=== PATIENT | female | born 1960 | race Caucasian/White ===

== ENCOUNTER 2017-02-21 11:12 | Emergency (ER) | payer OTHER ==
[2017-02-21] MEDS: HYDROcodone/APAP 5/325MG 1 TAB TABLET PO (12:04)
== END 2017-02-21 13:47 | disposition home or self-care (01) ==
LOC: ER 11:12
DX: S89.92XA Unspecified injury of left lower leg, initial encounter (principal); J45.909 Unspecified asthma, uncomplicated; Z98.1 Arthrodesis status; W01.0XXA Fall on same level from slipping, tripping and stumbling without subsequent striking against object, initial encounter; Y93.89 Activity, other specified; Y99.8 Other external cause status; Y92.89 Other specified places as the place of occurrence of the external cause
CPT/HCPCS: 29505; 73562; 99284-25

== ENCOUNTER → 2017-10-14 | Outpatient (CLI) | payer OTHER ==
[2017-02-21 11:38] VITALS: BP 134/69
[~2017-10-14] MED LIST: CETI10TA22 PO; HYDR-971 PO; HYDROCODONE PO; IBUP-1060 PO; MONT10TA6 PO
== END | disposition home or self-care (01) ==
LOC: SPEC 12:26
PROVIDERS: ATTEND Family Medicine
DX: Z12.4 Encounter for screening for malignant neoplasm of cervix (principal); K21.9 Gastro-esophageal reflux disease without esophagitis
CPT/HCPCS: 87623; 88175

== ENCOUNTER → 2019-03-17 | Outpatient (CLI) | payer OTHER ==
[2017-02-21 11:38] VITALS: BP 134/69
[~2019-03-17] MED LIST changes: -CETI10TA22 PO; +CETI10TA24 PO; +HYDR-3164 PO; -HYDR-971 PO; +MONT10TA49 PO; -MONT10TA6 PO
[2019-03-17 09:21] LABS: HEMATOCRIT 41.3 % (36.0-47.0); RED BLOOD COUNT 4.45 x10^6/uL (3.50-5.40); RED CELL DISTRIBUTION WIDTH 13.1 % (11.5-14.5); WHITE BLOOD COUNT 5.3 x10^3/uL (4.0-11.0)
[2019-03-17 09:47] LABS: ALBUMIN 3.4 g/dL (3.4-5.0); ALBUMIN/GLOBULIN RATIO 0.9 (1.0-1.7); CALCIUM 8.9 mg/dL (8.5-10.1); CREATININE 0.6 mg/dL (0.6-1.0); GFR 103.4; POTASSIUM 4.6 mmol/L (3.5-5.1); TOTAL BILIRUBIN 0.3 mg/dL (0.2-1.0); TOTAL PROTEIN 7.2 g/dL (6.4-8.2)
[2019-03-17 09:49] LABS: CHOLESTEROL/HDL RATIO 3.1
[2019-03-17 10:00] LABS: THYROID STIM HORMONE (TSH) 1.566 uIU/mL (0.358-3.74)
[2019-03-19 13:06] LABS: FREE T4 0.95 ng/dL (0.76-1.46)
== END | disposition home or self-care (01) ==
LOC: LAB 08:53
PROVIDERS: ATTEND Nurse Practitioner Gerontology
DX: Z00.00 Encounter for general adult medical examination without abnormal findings (principal)
CPT/HCPCS: 36415; 80053; 80061; 84439; 84443; 85027

== ENCOUNTER 2020-04-05 08:35 | Emergency (ER) | payer OTHER ==
[~2020-04-05] VITALS: Ht 162.6 cm; Wt 90.0 kg
[~2020-04-05 08:35] MED LIST changes: -CETI10TA24 PO; +CETI10TA74 PO
[2020-04-05 08:49] VITALS: BP 172/122
[2020-04-05 08:59] LABS: BILIRUBIN,URINE SMALL (NEG); CLARITY,URINE CLEAR; COLOR,URINE YELLOW; NITRITE,URINE NEGATIVE (NEG); PH,URINE 6.5 (<5.0-8.0); PROTEIN,URINE NEGATIVE (NEG-TRACE)
--- NOTE | 2020-04-05 09:11 | PHYS DOC ---
Past Medical History Past Medical History: Asthma, Other Additional Past Medical Histor: seasonal allergies Past Surgical History: , Other Additional Past Surgical Histo: ORIF left wrist Smoking Status: Never Smoker Alcohol Use: Occasionally Drug Use: None General Adult EDM: Chief Complaint: LOWER BACK PAIN OR INJURY HPI: HPI: This is a pleasant 59-year-old female presents emergency department with low back pain after playing tennis. This all started on Wednesday and the pain is been worsening. She has seen urgent care which gave her Toradol and Flexeril without much improvement. She denies any weakness in her legs. She denies naus ea vomiting fevers or chills. She denies dysuria polyuria. Heart Score: Risk Factors: Risk Factors: DM, Current or recent (<one month) smoker, HTN, HLP, family history of CAD, obesity. Risk Scores: Score 0 - 3: 2.5% MACE over next 6 weeks - Discharge Home Score 4 - 6: 20.3% MACE over next 6 weeks - Admit for Clinical Observation Score 7 - 10: 72.7% MACE over next 6 weeks - Early Invasive Strategies Allergies: Allergies: Allergies Coded Allergies Type Severity Reaction Last Updated Verified No Known Drug Allergies 12/26/14 No Physical Exam: PE: Constitutional: Well developed, well nourished, no acute distress, non-toxic appearance. [] HENT: Normocephalic, atraumatic, bilateral external ears normal, oropharynx moist, no oral exudates, nose normal. [] Eyes: PERRLA, EOMI, conjunctiva normal, no discharge. [] Neck: Normal range of motion, no tenderness, supple, no stridor. [] Cardiovascular:Heart rate regular rhythm, no murmur [] Lungs & Thorax: Bilateral breath sounds clear to auscultation [] Abdomen: Bowel sounds normal, soft, no tenderness, no masses, no pulsatile masses. [] Skin: Warm, dry, no erythema, no rash. [] Back: Mild tenderness in the paraspinal musculature bilaterally in the lumbar region. Nontender midline. No step-offs. No fluctuant masses. Normal temperature to touch., no CVA tenderness. [] Extremities: No tenderness, no cyanosis, no clubbing, ROM intact, no edema. [] Neurologic: Alert and oriented X 3, normal motor function, normal sensory function, no focal deficits noted. [] 5 out of 5 strength in the legs with normal deep tendon reflexes of the knees. Psychologic: Affect normal, judgement normal, mood normal. [] EKG: EKG: [] Radiology/Procedures: Radiology/Procedures: [] Course & Med Decision Making: Course & Med Decision Making Pertinent Labs and Imaging studies reviewed. (See chart for details) [] Dragon Disclaimer: Dragon Disclaimer: This electronic medical record was generated, in whole or in part, using a voice recognition dictation system. Departure Departure Impression: Primary Impression: Back pain Disposition: 01 DC HOME SELF CARE/HOMELESS Condition: STABLE Referrals: SHANNAN MONGE APRN (PCP) Patient Instructions: Back Pain, Adult Additional Instructions: EMERGENCY DEPARTMENT GENERAL DISCHARGE INSTRUCTIONS Follow-up with your primary physician in 1 to 2 days. Return to the emergency department if you have any new or concerning findings. Thank you for coming to [facility] (ED) today and trusting us with you care. We trust that you had a positive experience in our Emergency Department. If you wish to speak to the department management, you may call the Director at [phone]. YOUR FOLLOW UP INSTRUCTIONS ARE FOLLOWS: 1. Do you have a private Doctor? If you do not have a private doctor, please ask for a resource list of physicians or clinics that may be able to assist you with follow up care. 2. If a lab test or culture has been done and does not come back immediately, your results will be reviewed and you will be notified if you need a change in treatment. ADDITIONAL INSTRUCTIONS AND INFORMATION: 1. Your care today has been supervised by a physician who is specially trained in emergency care. Many problems require more than one evaluation for a complete diagnosis and treatment. We recommend that you schedule your follow up appointment as recommended to ensure complete treatment of you illness or injury. If you are unable to obtain follow up care and continue to have a problem, or if your condition worsens, we recommend that you return to the ED. 2. We are not able to safely determine your condition over the phone nor are we able to give sound medical advice over the phone. For these safety reasons, if you call for medical advice we will ask you to come to the ED for further evaluation. 3. If you have any questions regarding these discharge instructions please call the ED at [phone]. SAFETY INFORMATION: In the interest of safety, wellness, and injury prevention; we encourage you to wear your sealbelt, if you smoke; quite smoking, and we encourage family to use a protective helmet for bicycling and other sporting events that present an increased risk for head injury. IF YOUR SYMPTOMS WORSEN OR NEW SYMPTOMS DEVELOP, OR YOU HAVE CONCERNS ABOUT YOUR CONDITION; OR IF YOUR CONDITION WORSENS WHILE YOU ARE WAITING FOR YOUR FOLLOW UP APPOINTMENT; EITHER CONTACT YOUR PRIMARY CARE DOCTOR, THE PHYSICIAN WHOSE NAME AND NUMBER YOU WERE GIVEN, OR RETURN TO THE ED IMMEDIATELY. This condition should be evaluated by your primary care physician and any necessary consulting services for continued management within a few days (1-2) after discharge. Return to the emergency department if you have any new or concerning symptoms including but not limited to fever, chills, nausea, vomiting, intractable pain, any new rashes, chest pain, shortness of breath, uncontrolled bleeding, difficulty breathing, and/or vision loss. Scripts Hydrocodone Bit/Acetaminophen (HYDROCODONE-APAP 5-325 ) 1 Tab Tablet 1 TAB PO PRN Q8HRS PRN for sev, #8 TAB 0 Refills Prov: MISHA SEXTON MD 04/05/20 Cyclobenzaprine Hcl (CYCLOBENZAPRINE HCL) 5 Mg Tablet 1 TAB PO TID PRN PRN for PAIN, #10 TAB Prov: MISHA SEXTON MD 04/05/20 MISHA SEXTON MD Apr 05, 2020 09:11
[2020-04-05 09:12] LABS: BACTERIA,URINE 0 /HPF (0-FEW)
--- NOTE | 2020-04-05 09:16 | RAD ---
PROCEDURE: XR LUMBAR SPINE 2-3V STUDY DATE: 04/05/2020 CLINICAL INDICATION / HISTORY: Reason: low back pain, injured back playin tennis Sat / Spl. Instructi ons: / History: . TECHNIQUE: AP, lateral and coned-down lateral views of the lumbar spine were obtained COMPARISON: None available FINDINGS: Five lumbar segments are identified. Lumbar vertebral bodies are normal in height and align ment. Disc height is mildly narrowed at L5-S1. Mild facet hypertrophy changes are present, best appre ciated at L3-L4 through L5-S1. Pedicles are intact. IMPRESSION: Mild lower lumbar spinal degenerative changes. No fracture or malalignment shown. Electronically signed by: Princess Trevino MD (04/05/2020 9:14 AM) [id number]
[2020-04-05] MEDS ORDERED: HYDR-2761 PO (11:12)
[2020-04-05] MEDS ORDERED: CYCL5TAB PO (11:12)
== END 2020-04-05 11:21 | disposition home or self-care (01) ==
LOC: ER 08:35
DX: M54.5 Low back pain (principal); J45.909 Unspecified asthma, uncomplicated
CPT/HCPCS: 72100; 81001; 99284

== ENCOUNTER 2021-02-23 23:32 | Emergency (ER) | payer OTHER ==
[~2021-02-23] VITALS: Ht 165.1 cm; Wt 88.6 kg
[~2021-02-23 23:32] MED LIST changes: +CYCL5TAB PO; +HYDR-2761 PO
[2021-02-23 23:45] VITALS: BP 141/81
[2021-02-23] MEDS ORDERED: ORPHENADRINE CITRATE 60 MG/2 ML VIAL. IM ONE (23:45)
[2021-02-23] MEDS ORDERED: KETOROLAC 60 MG/2 ML VIAL. IM ONE (23:45)
--- NOTE | 2021-02-23 23:59 | ED.ADGEN ---
Past Medical History Past Medical History: Asthma, Other Additional Past Medical Histor: seasonal allergies Past Surgical History: , Other Additional Past Surgical Histo: ORIF left wrist Smoking Status: Never Smoker Alcohol Use: Occasionally Drug Use: None General Adult EDM: Chief Complaint: MECHANICAL FALL HPI: HPI: Patient is a 60 year old 60-year-old female coming in for left anterior thigh pain. Patient states she fell down her steps and is unsure how she landed that she landed on her knees. Is back difficulty ambulating secondary to pain. No other injuries Review of Systems: Review of Systems: All other systems within normal limits except for as noted in the HPI Current Medications: Current Medications Medications (Trade) Dose Ordered Sig/Hallie Start Time Stop Time Status Last Admin Dose Admin Ketorolac Tromethamine (Toradol Im) 60 mg 1X ONCE 02/23/21 23:45 02/23/21 23:51 DC 02/24/21 00:31 60 MG Orphenadrine Citrate (Norflex) 60 mg 1X ONCE 02/23/21 23:45 02/23/21 23:51 DC 02/24/21 00:32 60 MG Allergies: Allergies: Allergies Coded Allergies Type Severity Reaction Last Updated Verified No Known Drug Allergies 12/26/14 No Physical Exam: PE: Constitutional: Well developed, well nourished, no acute distress, non-toxic appearance. [] HENT: Normocephalic, atraumatic, bilateral external ears normal, nose normal. [] Eyes: PERRLA, conjunctiva normal, no discharge. [] Neck: No rigidity, supple, no stridor. [] Cardiovascular: Regular rate and rhythm, brisk cap refill [] Lungs & Thorax: Non labored symmetric respirations, no tachypnea or respiratory distress [] Abdomen: Soft, nondistended. Skin: Warm, dry, no erythema, no rash. [] Back: Unremarkable Extremities: No deformities, range of motion grossly intact, no lower extremity edema. No tenderness over hip or lower part of left leg. Tenderness and firmness to anterior left thigh, on postop [] Neurologic: Alert and oriented X 3, no focal deficits noted. [] Psychologic: Affect normal, judgement normal, mood normal. [] Current Patient Data: Vital Signs: Vital Signs Date Time Temp Pulse Resp B/P (MAP) Pulse Ox O2 Delivery O2 Flow Rate FiO2 1/9/22 23:45 98.2 96 14 141/81 (101) 95 Room Air 98.2 EKG: EKG: [] Heart Score: C/O Chest Pain: No Risk Factors: Risk Factors: DM, Current or recent (<one month) smoker, HTN, HLP, family history of CAD, obesity. Risk Scores: Score 0 - 3: 2.5% MACE over next 6 weeks - Discharge Home Score 4 - 6: 20.3% MACE over next 6 weeks - Admit for Clinical Observation Score 7 - 10: 72.7% MACE over next 6 weeks - Early Invasive Strategies Radiology/Procedures: Radiology/Procedures: [] Course & Med Decision Making: Course & Med Decision Making EP interpretation of imaging shows no obvious fracture deformities, no signs of avulsion fracture. Patient's pain is localized to 1 area of her anterior thigh, there is no tenderness on the muscle distal or proximal to pain site, pain out of portion and not reproducible with passive stretch, patella tendon intact against gravity. No tenderness over bony tendon insertion sites. Unlikely to be an avulsion fracture or compartment syndrome, but patient given return precautions. Patient placed in knee immobilizer Dragon Disclaimer: [employer] Disclaimer: This electronic medical record was generated, in whole or in part, using a voice recognition dictation system. Departure Departure Impression: Primary Impression: Muscle strain of left thigh Disposition: 01 HOME / SELF CARE / HOMELESS Condition: STABLE Referrals: SHANNAN MONGE APRN (PCP) PHOENIX RAMSAY Jr. DO Patient Instructions: Muscle Cramps, [id number] Scripts Cyclobenzaprine Hcl (CYCLOBENZAPRINE HCL) 10 Mg Tablet 1 TAB PO TID PRN for MUSCLE PAIN for 5 Days, #15 TAB Prov: STEPHANIE LU MD 02/24/21 STEPHANIE LU MD Feb 23, 2021 23:59
[2021-02-24] MEDS ORDERED: CYCL10TA19 PO (01:20)
--- NOTE | 2021-02-24 01:35 | RAD ---
XR FEMUR_LEFT History: Reason: possible quad avulsion / Spl. Instructions: / History: Pain Technique: 2 views left femur Comparison: None. Findings: No dislocation. No acute fracture. Moderate left knee DJD. Mild pubic symphysis DJD. Mild left hip DJ D. Potential inflammatory changes superior to the patella. Small calcification superior to the patella m easures 0.2 cm and is 3.1 cm distance above the patella. Impression: 1. Suprapatellar infiltration with small calcification, can be seen with avulsion fracture fragment in the appropriate clinical setting. Recommend further clinical evaluation. Electronically signed by: Eduardo Mirza DO (02/24/2021 1:32 AM) [facility]
== END 2021-02-24 02:25 | disposition home or self-care (01) ==
LOC: ER 23:32
DX: S76.912A Strain of unspecified muscles, fascia and tendons at thigh level, left thigh, initial encounter (principal); J45.909 Unspecified asthma, uncomplicated; W10.8XXA Fall (on) (from) other stairs and steps, initial encounter; Y93.89 Activity, other specified; Y92.89 Other specified places as the place of occurrence of the external cause; Y99.8 Other external cause status
CPT/HCPCS: 29505; 73552; 96372; 99284; J1885; J2360

== ENCOUNTER → 2021-03-04 | Outpatient (CLI) | payer OTHER ==
[2021-02-23 23:45] VITALS: BP 141/81
[~2021-03-04] MED LIST changes: +CYCL10TA19 PO
--- NOTE | 2021-03-04 09:03 | KCIC ---
STUDY: MRI of the left knee without contrast INDICATION: Left knee pain. Injury reported on 02/23/2021. COMPARISON: Left femur radiographs 02/23/2021 TECHNIQUE: Multiplanar MR imaging of the left knee performed without the use of intravenous or intra- articular contrast. FINDINGS: Menisci: Mild heterogeneity of the articular surfaces of the medial meniscal body, image 16 series 8, but no discrete meniscal tear defect is seen medial or lateral. Cruciate ligaments: Intact. Collateral ligaments: Intact medial and lateral collateral ligaments. Edema/tracking fluid along the collateral ligaments is reactive. Tendons: High-grade partial tear of the quadriceps primarily with involvement of the vastus intermedi us which is fully torn from its patellar insertion. Variable extent of tendon retraction mainly betwe en 1 and 2 cm. Suspected partial tear of the vastus lateralis. Partially visualized vastus lateralis more so than medius muscular edema. Muscular edema along the deep aspect of the medial gastrocnemius in the setting of a tracking intermuscular fluid collection that communicates with a Child's cyst. Cartilage: Tricompartmental chondrosis with greatest involvement of the patellofemoral compartment, p rimarily the patella, where there is high-grade and full-thickness loss. Chondrosis elsewhere is most ly partial-thickness but with some areas of high-grade/near full-thickness loss such as at the proxim al nonweightbearing lateral femoral condyle (image 12 series 8 and at the inner weightbearing medial femoral condyle on image 16 series 8. Bones: Tricompartmental osteophytes. Mild scattered degenerative subchondral signal. Bony irregularit y and minimal edema at the superior pole of the patella related to the quadriceps tear and likely tra ce bony avulsion. Miscellaneous: Small joint effusion. Edema/hemorrhage at the suprapatellar fat pad. Multifocal soft t issue edema and tracking ill-defined fluid signal. Small mildly complex Child's cyst with probable le akage of cyst contents downward into the calf. As above, a portion of the cyst infiltrates the medial gastrocnemius muscle with surrounding edema. A few small loose bodies such as dorsal/medial to the P CL. IMPRESSION: 1. High-grade partial tear of the quadriceps to include a full-thickness tear of the vastus intermed ius off its patellar insertion. Variable retraction mainly between 1 and 2 cm and with suspected mini mal associated bony avulsion. The rectus femoris and vastus medialis are still seen to attach to the patella. Possible partial vastus lateralis tear but difficult to confirm. The patella remains normall y located. 2. Intact menisci, cruciate ligaments and collateral ligaments. 3. Small knee joint effusion and soft tissue sequela of trauma around the knee. Small Child's cyst w hich appears to be leaking cyst contents and infiltrates into the medial gastrocnemius with surroundi ng muscular edema. 4. Tricompartmental chondrosis with some areas of high-grade and full-thickness loss most extensivel y at the patella. A few small knee joint loose bodies. Electronically signed by: HUYEN NASH MD (03/04/2021 9:00 AM) [facility]
== END ==
LOC: KCIC MRI 07:55
PROVIDERS: ATTEND Nurse Practitioner Family
DX: S76.112A Strain of left quadriceps muscle, fascia and tendon, initial encounter (principal); M71.22 Synovial cyst of popliteal space [Baker], left knee; M25.762 Osteophyte, left knee; M25.462 Effusion, left knee; M79.4 Hypertrophy of (infrapatellar) fat pad; M23.42 Loose body in knee, left knee; X58.XXXA Exposure to other specified factors, initial encounter; Y93.89 Activity, other specified; Y92.89 Other specified places as the place of occurrence of the external cause; Y99.8 Other external cause status
CPT/HCPCS: 73721

== ENCOUNTER 2021-03-11 06:03 | Day surgery (SDC) | payer OTHER ==
[~2021-03-11] VITALS: Ht 167.6 cm; Wt 88.6 kg
[~2021-03-11 06:03] MED LIST changes: +HYDROmorphone 2 MG/ML INJ. IVP PRN; +IV RINGERS,LACTATED 1000ML 1,000 ML IV SCH; +MORPHINE SULFATE 2 MG/ML INJ. IVP PRN; +PROCHLORPERAZINE 10 MG/2 ML VIAL. IVP PRN; +fentaNYL PF VIAL 100 MCG/2 ML VIAL IVP PRN
[2021-03-11 06:21] VITALS: BP 137/75
[2021-03-11] MEDS ORDERED: ALBU2.5V8 IH (06:32)
[2021-03-11] MEDS ORDERED: MOME13HF2 IH (06:32)
[2021-03-11] MEDS ORDERED: BUPIVACAINE MPF 0.5% 30 ML VIAL. ONE (06:57)
[2021-03-11] MEDS ORDERED: LIDOCAINE 1% PF 30 ML VIAL. ONE (06:57)
[2021-03-11] MEDS ORDERED: PROPOFOL 10 MG/ML (20ML) VIAL. IV ONE (06:58)
[2021-03-11] MEDS ORDERED: fentaNYL PF VIAL 100 MCG/2 ML VIAL ONE ×3 (06:58→09:03)
[2021-03-11] MEDS ORDERED: ceFAZolin 2GM PREMIX 2 GM/50 ML BAG IV ONE (07:00)
[2021-03-11] MEDS ORDERED: ONDANSETRON PF 4 MG/2 ML VIAL. ONE (07:01)
[2021-03-11] MEDS ORDERED: DEXAMETHASONE SOD PHOS 4 MG/ML VIAL ONE (07:01)
[2021-03-11] MEDS ORDERED: SUCCINYLCHOLINE 200 MG/10 ML VIAL. ONE (07:03)
[2021-03-11] MEDS ORDERED: OXYC-325 PO (07:28)
--- NOTE | 2021-03-11 07:29 | DISCH ---
DISCHARGE INSTRUCTIONS Condition on Discharge Condition on Discharge: Stable Activity After Discharge Activity Instructions for Disc: No restrictions, Other ROM activity Other activity instructions: Okay to weight-bear with brace locked in extension Bathing Instructions: Shower-keep dressing dry Weight Bearing Status after Di: Non weight bearing Diet after Discharge Diet after Discharge: Regular Wound Incision Care Wound/Incision Care: Ice to area for comfort, Keep wound/cast CDI, Change dressing, Do not change dressing Other wound/incision instructi: Change dressing in 2 to 3 days, keep incision covered Contacting the DRJonny after DC Call your doctor for: Concerns you may have Follow-Up Follow up with: Gabriel in 2 wks Treatment/Equipment after DC Adaptive Equipment Issued: None MARQUISE AUSTIN II, MD Mar 11, 2021 07:29
--- NOTE | 2021-03-11 07:31 | PDOC4 ---
Operative Note Operative Note Date of procedure: 03/11/2021 Surgeon: Roman Austin Production Line: Juan Zimmer Preoperative diagnosis: High-grade left partial quad rupture Postoperative diagnosis: Same Procedure performed: Open left quadriceps repair Anesthesia: General Tourniquet time: 38min Blood loss: 10 mL Findings: Patient had a interstitial, deep rupture of the lateral 50 to 66% of her quad tendon. She had a hemarthrosis present. Complications: None Reason for procedure: Patient is a pleasant 60-year-old who was referred to see me in my outpatient clinic after a knee injury. Clinical and radiographic examination including MRI were reviewed and consistent with the above preoperative diagnosis. Because of the high-grade nature, I recommended surgical intervention and discussed the risks benefits and alternatives and she wished to proceed. Description of procedure: Patient was greeted in the preoperative area by myself or the correct extremity was verified and marked. She was taken to the operative suite and antibiotics were started as she was brought back. Once in the operating room, she was transferred gently supine to the operating table and secured to bed with all pressure points padded. She underwent successful induction of a general anesthetic. We then proceeded to prep and drape left lower extremity in her usual sterile fashion after applying a nonsterile tourniquet. After this, we conducted a standard preoperative timeout. I then palpated marked surface anatomy and toma a line for my planned incision anterior midline incision. The extremity was exsanguinated with an Esmarch and tourniquet insufflated to 250 mmHg. After this, I incised skin with a scalpel and dissected subcutaneous tissue with electrocautery. I opened the peritenon. I continued my dissection medially and laterally to expose the patella and quad tendon. After this, I palpated for the defect and incised with a scalpel blade, there was about a millimeter thickness of quad tendon that was still intact superficially, but the deep portion allowed visualization of the hematoma and extravasation of a hemarthrosis, I used a rongeur to prepare my bony bed at the superior aspect of the patella and debride the unhealthy appearing tendon as well. After this, I placed 2 drill tunnels, using a mosquito to spread inferiorly at the patella followed by a soft tissue protector and drilled 2 holes. These holes proceeded from inferior to superior at the lateral 50% of her patella. I then used a #2 ultra braid in a locked running fashion up and down her tendon and shuttled the limbs through and tied them down securely over the inferior aspect of the patella. There was no gapping at the repair site up to 30 or 40 degrees. After this, I used a #2 Vicryl, a single simple interrupted to repair the small split in the patellar tendon for my drill holes. I then closed peritenon with simple interrupted 2-0 Vicryl as well. Inverted interrupted 2-0 Vicryl was used for subcutaneous tissue and running subcuticular 3-0 Monocryl was used for skin. After this, the area was cleansed and dried. Local anesthetic and been infiltrated into the periincisional area. The tourniquet was let down. Hemostasis had been ensured with electrocautery. All counts were correct x2 prior to wound closure. No complications. Xeroform gauze soft roll and an Merrick wrap were applied followed by a hinged knee brace locked in extension. She was awakened from anesthesia and transferred gently supine to the hospital bed and taken to the PACU in stable and extubated condition. Postoperative plan is to discharge home. Postoperative instructions were given in written form and discussed with her and her . She has physical therapy set up for . I will see her back in 2 weeks, sooner should a problem arise ROMAN AUSTIN II, MD Mar 11, 2021 07:31
[2021-03-11] MEDS ORDERED: BUPIVACAINE MPF 0.5% 30 ML VIAL. IJ ONE (07:47)
[2021-03-11] MEDS ORDERED: LIDOCAINE 1% PF 30 ML VIAL. INJ ONE (07:47)
[2021-03-11] MEDS ORDERED: GLYCOPYRROLATE 1 MG/5 ML VIAL. ONE (07:52)
[2021-03-11] MEDS ORDERED: oxyCODONE/APAP 5/325 1 TAB TABLET PO ONE (09:00)
[2021-03-11 09:35] VITALS: BP 132/77
== END 2021-03-11 09:53 | disposition home or self-care (01) ==
LOC: SURG 06:03
PROVIDERS: ATTEND Orthopaedic Surgery Sports Medicine
DX: S76.112A Strain of left quadriceps muscle, fascia and tendon, initial encounter (principal); J45.909 Unspecified asthma, uncomplicated; E66.9 Obesity, unspecified; K21.9 Gastro-esophageal reflux disease without esophagitis; Z79.899 Other long term (current) drug therapy; Z72.89 Other problems related to lifestyle; Z98.890 Other specified postprocedural states; X58.XXXA Exposure to other specified factors, initial encounter; Y93.89 Activity, other specified; Y92.89 Other specified places as the place of occurrence of the external cause; Y99.8 Other external cause status
CPT/HCPCS: 27385; A4213; A4930; A6253; A6402; A6450; J0330; J0690; J1100; J2405; J2704; J3010; J3490; A6455